=== PATIENT | female | born 1995 | race Hispanic/Latino ===

== ENCOUNTER 2020-03-23 07:27 | Emergency (ER) | payer OTHER ==
[2020-03-23 08:10] LABS: Absolute Lymphocytes (CBC) 2.3 K/uL (0.7-4.9); Basophils % 0.6 % (0-1.3); Hematocrit 39.3 % (36.0-45.0); Lymphocytes % 30.3 % (15.3-44.8); MPV 9.1 fL (7.6-11.3); RBC Red Blood Cell Count 4.36 M/uL (3.86-4.86)
[2020-03-23 08:25] LABS: BUN Blood Urea Nitrogen 9 mg/dL (7-18); Bicarbonate 25 mmol/L (21-32); Glucose Level 96 mg/dL (74-106); Potassium 3.7 mmol/L (3.5-5.1); Sodium Level 137 mmol/L (136-145)
[2020-03-23 08:29] LABS: Urine Blood 3+ (NEG); Urine Glucose NEGATIVE (NEG); Urine Protein TRACE (NEG); Urine Specific Gravity 1.025 (1.005-1.030)
[2020-03-23] MEDS ORDERED: ACETAMINOPHEN 500 MG TAB ONE (09:33)
--- NOTE | 2020-03-23 09:35 | RAD REPORT ---
EXAM DESCRIPTION: US - 1St Trimest Single 1St Fetus - 03/23/2020 8:48 am CLINICAL HISTORY: with vaginal bleeding. Abdominal pain COMPARISON: None. FINDINGS: The uterus 8 x 4 x 5 centimeters. A sac is present within the endometrium measuring 6 mil limeters. A pole measures 4 millimeters. Cardiac activity is not seen. For Ovaries are normal in size and echotexture.. An adnexal mass is not noted. No significant free fluid IMPRESSION: Intrauterine with an estimated gestational age 5 weeks 5 days RANJIT 11/18/2020. Cardiac activity was not visualized. This may simply be secondary to the early age. It is recommended that the patient have a followup endovaginal sonogram in 1 week for re-evaluation
--- NOTE | 2020-03-23 09:45 | ER ---
Nurse's Notes [facility] Name: Dennise Carr Age: 24 yrs Sex: Female : 1995 Arrival Date: 03/23/2020 Time: 07:32 Bed 8 Private MD: Diagnosis: Threatened ;Abnormal uterine and vaginal bleeding, unspecified Presentation: 03/23 07:43 Chief complaint: Patient states: is approx 10 weeks , started spotting on iw Thursday, lower abd pain today at 3 am, increased bleeding, is seen at [facility]. Coronavirus screen: Proceed with normal triage. Patient denies a cough. Patient denies shortness of breath or difficulty breathing. Patient denies measured and/or subjective temperature greater than 100.4F prior to today's visit. Patient denies travel on a cruise ship or to a country the [facility] currently lists as an affected area. Patient denies contact with known and/or suspected case of COVID-19. Ebola Screen: Patient negative for fever greater than or equal to 101.5 degrees Fahrenheit, and additional compatible Ebola Virus Disease symptoms Patient denies exposure to infectious person. Patient denies travel to an Ebola-affected area in the 21 days before illness onset. No symptoms or risks identified at this time. Initial Sepsis Screen: Does the patient meet any 2 criteria? No. Patient's initial sepsis screen is negative. Does the patient have a suspected source of infection? No. Patient's initial sepsis screen is negative. Risk Assessment: Do you want to hurt yourself or someone else? Patient reports no desire to harm self or others. Onset of symptoms was March 20, 2020. 07:43 Method Of Arrival: Ambulatory iw 07:43 Acuity: REE 3 Triage Assessment: 07:45 General: Appears in no apparent distress. uncomfortable, well groomed, well developed, sv Behavior is calm, cooperative, appropriate for age. Pain: Complains of pain in left lower quadrant and right lower quadrant and suprapubic area. Neuro: Level of Consciousness is awake, alert, obeys commands, Oriented to person, place, time, situation, Moves all extremities. Full function Gait is steady. Respiratory: Airway is patent Respiratory effort is even, unlabored, Respiratory pattern is regular, symmetrical. GI: Reports lower abdominal pain. : Reports vaginal bleeding that is spotty, since Thursday but has increased since then. Derm: Skin is pink, warm \T\ dry. Musculoskeletal: Range of motion: intact in all extremities. 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 - Social history:: Smoking status: Patient denies any tobacco usage or history of. - Family history:: not pertinent. Screenin:42 Abuse screen: Denies threats or abuse. Denies injuries from another. Nutritional sv screening: No deficits noted. Tuberculosis screening: No symptoms or risk factors identified. Fall Risk None identified. Assessment: 08:50 Reassessment: Patient appears in no apparent distress at this time. No changes from sv previously documented assessment. Patient and/or family updated on plan of care and expected duration. Pain level reassessed. Patient is alert, oriented x 3, equal unlabored respirations, skin warm/dry/pink. 09:32 Reassessment: Patient appears in no apparent distress at this time. Patient and/or sv family updated on plan of care and expected duration. Pain level reassessed. Patient is alert, oriented x 3, equal unlabored respirations, skin warm/dry/pink. GI: Reports cramping. 09:53 Reassessment: Patient appears in no apparent distress at this time. No changes from sv previously documented assessment. Patient and/or family updated on plan of care and expected duration. Pain level reassessed. Patient is alert, oriented x 3, equal unlabored respirations, skin warm/dry/pink. Vital Signs: 08:04 BP 112 / 56; Pulse 72; Resp 16; Temp 97; Pulse Ox 100% ; sv 08:29 BP 112 / 56; Pulse 78; Resp 16; Temp 97.5(TE); Pulse Ox 100% on R/A; mh5 09:16 BP 113 / 57; Pulse 65; Resp 17 S; Pulse Ox 100% on R/A; jl7 ED Course: 07:32 Patient arrived in ED. mr 07:35 Epifanio Linares PA is PHCP. jr8 07:35 Jeffrey Islas MD is Attending Physician. jr8 07:37 Glen Pierce DO is Attending Physician. jr8 07:41 aKssie Suarez, IGNACIA is Primary Nurse. sv 07:42 Arm band placed on Patient placed in an exam room, on a stretcher. sv 07:42 Patient has correct armband on for positive identification. Bed in low position. Call sv light in reach. Door closed. Head of bed elevated. 07:44 Triage completed. iw 07:55 Inserted saline lock: 20 gauge in right antecubital area, using aseptic technique. sv Blood collected. Flushed right antecubital with 5 ml normal saline. 08:49 1st Trimest Single 1st Fetus In Process Unspecified. EDMS 08:51 Awaiting lab results, Awaiting radiology results. sv 09:53 No provider procedures requiring assistance completed. IV discontinued, intact, sv bleeding controlled, No redness/swelling at site. Pressure dressing applied. Administered Medications: 09:31 Drug: Tylenol 1000 mg Route: PO; sv 09:53 Follow up: Response: No adverse reaction sv Point of Care Testing: Urine : 08:15 hCG Reading: Positive; Control Reading: Positive; jl7 Outcome: 09:44 Discharge ordered by . ms3 09:53 Discharged to home ambulatory. sv 09:53 Condition: stable 09:53 Discharge instructions given to patient, Instructed on discharge instructions, follow up and referral plans. pelvic rest Demonstrated understanding of instructions, follow-up care, pelvic rest 09:53 Patient left the ED. sv Signatures: Dispatcher [employer] EDMS Kassie Suarez, Tessa Orantes RN, Irene, IGNACIA BETH Epifanio Linares PA PA jr8 Martinez, Maria [facility] Estrellita Hammonds RN RN jl7 Glen Pierce DO DO ms3
--- NOTE | 2020-03-23 09:45 | EDPHYS ---
Physician Documentation [facility] Name: Dennise Carr Age: 24 yrs Sex: Female : 1995 Arrival Date: 03/23/2020 Time: 07:32 Bed 8 Private MD: ED Physician Glen Pierce HPI: 03/23 07:43 This 24 yrs old Female presents to ER via Unassigned with complaints of ms3 Vaginal Bleeding, + Preg <12wks, Abdominal Pain. 07:43 The patient presents to the emergency department with abdominal pain, of the suprapubic ms3 area, vaginal bleeding, that is light, described as spotting, reports using 2 pads or tampons per day. The estimated gestational age is 10 weeks. course: care: private OB physician, MAHENRRY Patterson. Previous pregnancies: the patient has never been . Associated signs and symptoms: Pertinent positives: abdominal pain, vaginal bleeding, Pertinent negatives: dysuria, fever, frequency, nausea, vomiting. The patient has not experienced similar symptoms in the past. The patient has been recently seen by a physician: in [facility]. 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 - Social history:: Smoking status: Patient denies any tobacco usage or history of. - Family history:: not pertinent. ROS: 07:43 Constitutional: Negative for fever, and chills. Eyes: Negative for injury, pain, ms3 redness, and discharge, Cardiovascular: Negative for chest pain, and palpitations. Respiratory: Negative for shortness of breath, cough, wheezing, and pleuritic chest pain, Back: Negative for injury and pain, MS/Extremity: Negative for injury and deformity, Skin: Negative for injury, rash, and discoloration, Psych: Negative for depression, anxiety, suicide ideation, homicidal ideation, and hallucinations. 07:43 Abdomen/GI: Positive for abdominal pain. 07:43 : Positive for vaginal bleeding. Exam: 07:43 Constitutional: This is a well developed, well nourished patient who is awake, alert, ms3 and in no acute distress. Eyes: Pupils equal round and reactive to light, extra-ocular motions intact. Lids and lashes normal. Conjunctiva and sclera are non-icteric and not injected. Cornea within normal limits. Periorbital areas with no swelling, redness, or edema. Chest/axilla: Normal chest wall appearance and motion. Nontender with no deformity. Cardiovascular: Regular rate and rhythm with a normal S1 and S2. No gallops, murmurs, or rubs. Normal PMI, no JVD. No pulse deficits. Respiratory: Lungs have equal breath sounds bilaterally, clear to auscultation and percussion. No rales, rhonchi or wheezes noted. No increased work of breathing, no retractions or nasal flaring. MS/ Extremity: Pulses equal, no cyanosis. Neurovascular intact. Full, normal range of motion. Psych: Awake, alert, with orientation to person, place and time. Behavior, mood, and affect are within normal limits. 07:43 Abdomen/GI: Exam negative for abnormal bowel sounds, guarding, Inspection: Bowel sounds: normal, Palpation: soft, in all quadrants, mild abdominal tenderness, in the right lower quadrant and left lower quadrant. 07:43 Cardiovascular: Rate: normal, Rhythm: irregular, Pulses: no pulse deficits are ms3 appreciated, Heart sounds: normal. 07:57 : Pelvic Exam: External exam: is normal, Speculum exam: mild bleeding, bimanual exam ms3 reveals os that is closed, an enlarged uterus, no uterine tenderness, no adnexa tenderness or masses bilaterally, discharge, bloody, the nurse was present for the exam. Vital Signs: 08:04 BP 112 / 56; Pulse 72; Resp 16; Temp 97; Pulse Ox 100% ; sv 08:29 BP 112 / 56; Pulse 78; Resp 16; Temp 97.5(TE); Pulse Ox 100% on R/A; mh5 09:16 BP 113 / 57; Pulse 65; Resp 17 S; Pulse Ox 100% on R/A; jl7 MDM: 07:37 Patient medically screened. jr8 09:25 ED course: Pt in bed at this time stating she has some abdominal pain. Will give PO ms3 Tylenol. Discussed labs with pt. Currently awaiting US report.. 09:46 Data reviewed: vital signs, nurses notes, EMS record, lab test result(s), CBC, ms3 electrolytes, Rh: radiologic studies, ultrasound. Counseling: I had a detailed discussion with the patient and/or guardian regarding: the historical points, exam findings, and any diagnostic results supporting the discharge/admit diagnosis, lab results, radiology results, the need for outpatient follow up, to return to the emergency department if symptoms worsen or persist or if there are any questions or concerns that arise at home. ED course: Discussed labs and US with pt. Pt to follow up with [facility] in 2-3 days. Pt understands/ agrees with plan. All questions answered. Retrun precautions discussed. Pt a/o x4, nad, non-toxic, ambulatory in ED.. 03/23 07:43 Order name: Abo/rh Typing; Complete Time: 09:20 ms3 03/23 09:21 Interpretation: Within normal limits: Rh +- no need for Rho Joleen. ms3 03/23 07:43 Order name: Basic Metabolic Panel; Complete Time: 09:20 ms3 03/23 09:21 Interpretation: Within normal limits. ms3 03/23 07:43 Order name: CBC with Diff; Complete Time: 08:21 ms3 03/23 08:21 Interpretation: Within normal limits. ms3 03/23 07:43 Order name: 1st Trimest Single 1st Fetus; Complete Time: 09:38 ms3 03/23 08:08 Order name: Urine Dipstick--Ancillary (enter results); Complete Time: 09:20 eb 03/23 09:21 Interpretation: Normal except: Blood in urine likely due to vaginal bleeding. ms3 03/23 08:08 Order name: Urine --Ancillary (enter results); Complete Time: 09:20 eb 03/23 07:43 Order name: IV Saline Lock; Complete Time: 08:04 ms3 03/23 07:43 Order name: Labs collected and sent; Complete Time: 08:04 ms3 03/23 07:43 Order name: NPO; Complete Time: 07:44 ms3 03/23 07:43 Order name: Urine Dipstick-Ancillary (obtain specimen); Complete Time: 08:04 ms3 Administered Medications: 09:31 Drug: Tylenol 1000 mg Route: PO; sv 09:53 Follow up: Response: No adverse reaction sv Point of Care Testing: Urine : 08:15 hCG Reading: Positive; Control Reading: Positive; jl7 Disposition: 09:46 Co-signature as Attending Physician, Glen Pierce DO. ms3 Disposition: 03/23/20 09:44 Discharged to Home. Impression: Threatened , Abnormal uterine and vaginal bleeding, unspecified. - Condition is Stable. - Discharge Instructions: Threatened Miscarriage, Vaginal Bleeding During , First Trimester. - Medication Reconciliation Form, Thank You Letter, Antibiotic Education, Prescription Opioid Use form. - Follow up: Private Physician; When: 2 - 3 days. Signatures: Dispatcher [employer] Kassie Schrader RN RN sv Williams, Irene, RN RN iw Roszak, Josh, PA PA jr8 Glen Pierce DO DO ms3 Corrections: (The following items were deleted from the chart) 09:53 09:44 03/23/2020 09:44 Discharged to Home. Impression: Threatened ; Abnormal sv uterine and vaginal bleeding, unspecified. Condition is Stable. Forms are Medication Reconciliation Form, Thank You Letter, Antibiotic Education, Prescription Opioid Use. Follow up: Private Physician; When: 2 - 3 days. ms3
[2020-03-23 10:01] VITALS: O2SAT 100
[2020-03-23 10:03] VITALS: TEMP 97.5
[2020-03-23 10:04] VITALS: BP 113/57
== END 2020-03-23 09:53 | disposition home or self-care (01) ==
LOC: ER 07:27
DX: O20.0 Threatened abortion (principal); Z3A.10 10 weeks gestation of pregnancy
CPT/HCPCS: 36415; 76801; 80048; 81003; 81025; 85025; 86900; 86901; 99284